=== PATIENT | female | born 1995 | race Caucasian/White ===

== ENCOUNTER → 2018-11-21 | Outpatient (REF) | payer OTHER | LOC: M SFHCLERA 11:42 | PROVIDERS: ATTEND Physician Assistant | DX: N39.0 Urinary tract infection, site not specified (principal) ==

== ENCOUNTER → 2019-01-02 | Outpatient (REF) | payer OTHER | LOC: M SFHCLERA 18:19 | PROVIDERS: ATTEND Physician Assistant | DX: N30.01 Acute cystitis with hematuria (principal) ==

== ENCOUNTER 2020-03-27 10:02 | Day surgery (SDC) | payer OTHER ==
[~2020-03-27] VITALS: Ht 165.1 cm; Wt 62.6 kg
[~2020-03-27 10:02] MED LIST: BUSP5TA PO; FLON1SPR; NS 1,000 ML IV ONE; TRAZ-252 PO; ZYRTTAB8 PO
[2020-03-27] MEDS ORDERED: fentaNYL 100 MCG/2 ML INJECTION (J3010) As Ordered ONE (11:53)
--- NOTE | 2020-03-27 11:53 | ROOR ---
Patient Name: Tracey Haney Procedure Date: 03/27/2020 11:35 AM Date of : 1995 Age: 24 Room: [facility] Gender: Female Note Status: Finalized Procedure: Upper Endoscopy + Biopsies Indications: Heartburn, Exclusion of Kyle's esophagus Providers: Daniel Peña MD Referring MD: POOJA PATTON MD Requesting Provider: Medicines: Monitored Anesthesia Care Complications: No immediate complications. Procedure: Pre-Anesthesia Assessment: - The heart rate, respiratory rate, oxygen saturations, blood pressure, adequacy of pulmonary ventilation, and response to care were monitored throughout the procedure. The Endoscope was introduced through the mouth, and advanced to the second part of duodenum. The upper GI endoscopy was accomplished without difficulty. The patient tolerated the procedure well. Findings: The Z-line was regular and was found 40 cm from the incisors. Multiple biopsies were obtained with cold forceps for evaluation to rule out Kyle's Esophagus randomly at the gastroesophageal junction. A small hiatal hernia was present. No other significant abnormalities were identified in a careful examination of the stomach. The exam of the duodenum was otherwise normal. Impression: - Z-line regular, 40 cm from the incisors. - Small hiatal hernia. - Multiple biopsies were obtained at the gastroesophageal junction. - The examination was otherwise normal. Recommendation: - Patient has a contact number available for emergencies. The signs and symptoms of potential delayed complications were discussed with the patient. Return to normal activities tomorrow. Written discharge instructions were provided to the patient. - High fiber diet. - Discharge patient to home. - Follow an antireflux regimen. - Continue present medications. - Await pathology results. - Telephone GI clinic for pathology results in 1 week. - Return to referring physician. - The findings and recommendations were discussed with the patient's family. Daniel Peña MD Daniel Peña MD 03/27/2020 11:53:19 AM Electronically signed by Daniel Peña MD Number of Addenda: 0 Note Initiated On: 03/27/2020 11:35 AM Estimated Blood Loss: Estimated blood loss: none.
[2020-03-27] MEDS ORDERED: propofoL 200 MG/20 ML VIAL As Ordered ONE (11:57)
[2020-03-27] MEDS ORDERED: LIDOCAINE 2% 100MG/5ML SDV (FOR ANES.) As Ordered ONE (11:57)
[2020-03-27 12:15] VITALS: BP 119/74
== END 2020-03-27 12:29 | disposition home or self-care (01) ==
LOC: M OPP 10:02
PROVIDERS: ATTEND Internal Medicine Gastroenterology
DX: K44.9 Diaphragmatic hernia without obstruction or gangrene (principal); R12 Heartburn; K21.9 Gastro-esophageal reflux disease without esophagitis; Z88.5 Allergy status to narcotic agent; Z91.018 Allergy to other foods
CPT/HCPCS: 43239; 88305; J3010